=== PATIENT | male | born 1960 | race African-American/Black ===

== ENCOUNTER 2017-07-25 15:25 | Emergency (ER) | payer MEDICAID, OTHER ==
[~2017-07-25] VITALS: Ht 190.5 cm; Wt 112.7 kg
[~2017-07-25 15:25] MED LIST: RISP.5 PO
[2017-07-25] MEDS ORDERED: PERTUSS(ACELL),DIPH,TET VAC/PF 0.5 ML VIAL IM ONE (18:00)
[2017-07-25 18:52] VITALS: BP 140/74
== END 2017-07-25 18:56 | disposition home or self-care (01) ==
LOC: EMS 15:26
DX: S61.233A Puncture wound without foreign body of left middle finger without damage to nail, initial encounter (principal); R03.0 Elevated blood-pressure reading, without diagnosis of hypertension; W53.01XA Bitten by mouse, initial encounter; Y93.89 Activity, other specified; Y92.89 Other specified places as the place of occurrence of the external cause; Y99.8 Other external cause status
CPT/HCPCS: 90471; 90715; 99283

== ENCOUNTER 2024-10-09 15:24 | Emergency (ER) | payer OTHER, MEDICAID ==
[~2024-10-09] VITALS: Ht 182.9 cm; Wt 104.5 kg
[~2024-10-09 15:24] MED LIST changes: -RISP.5 PO; +RISP0.5T39 PO
[2024-10-09 15:35] VITALS: BP 102/71; PULSE 123; RESP 18; TEMP 98.8; O2SAT 98
[2024-10-09] MEDS ORDERED: PRED-554 PO (17:17)
[2024-10-09] MEDS ORDERED: DIPH-1243 PO (17:17)
== END 2024-10-09 17:48 | disposition home or self-care (01) ==
LOC: EMS 15:24
DX: T63.481A Toxic effect of venom of other arthropod, accidental (unintentional), initial encounter (principal); Z79.52 Long term (current) use of systemic steroids; Y92.89 Other specified places as the place of occurrence of the external cause
CPT/HCPCS: 99283; J7512